=== PATIENT | female | born 1965 | race Caucasian/White ===

== ENCOUNTER → 2017-06-30 | Day surgery (SDC) | payer OTHER ==
[~2017-06-30] MED LIST: LIDOCAINE 1% PF 2 ML VIAL. ID; LIDOCAINE 2% 100 MG/5 ML SYRINGE.; ONDANSETRON PF 4 MG/2 ML VIAL. IV; PROCHLORPERAZINE 10 MG/2 ML VIAL. IV; PROPOFOL 40 ML IV; fentaNYL PF VIAL 100 MCG/2 ML VIAL IV
[2017-06-30] MEDS: IV RINGERS,LACTATED 1000ML 1,000 ML IV ×2 (06:36)
== END | disposition home or self-care (01) ==
LOC: ENDOS 06:15
DX: Z12.11 Encounter for screening for malignant neoplasm of colon (principal); D12.5 Benign neoplasm of sigmoid colon; K64.0 First degree hemorrhoids; Z88.5 Allergy status to narcotic agent; J45.909 Unspecified asthma, uncomplicated
CPT/HCPCS: 45380; 88305; J2704

== ENCOUNTER → 2018-07-22 | Outpatient (CLI) | payer OTHER ==
[2017-06-30 08:03] VITALS: BP 103/50
[~2018-07-22] MED LIST changes: +BACL10TA PO; +BUDE10.2 IH; +FLUT9.9S NS; +HYDR25TA PO; -LIDOCAINE 1% PF 2 ML VIAL. ID; -LIDOCAINE 2% 100 MG/5 ML SYRINGE.; +MELO7.5T29 PO; -ONDANSETRON PF 4 MG/2 ML VIAL. IV; +PARO20TA3 PO; +PHEN100C4 PO; -PROCHLORPERAZINE 10 MG/2 ML VIAL. IV; -PROPOFOL 40 ML IV; -fentaNYL PF VIAL 100 MCG/2 ML VIAL IV
--- NOTE | 2018-07-22 11:26 | RAD ---
Right wrist, 3 views, 07/22/2018: HISTORY: Arthritis No fracture or dislocation is identified. There is moderate degenerative change at the first CMC articulation. Right hand, 3 views, 07/22/2018: No fracture or dislocation is identified. No erosive bony changes are seen. The soft tissues are unremarkable. IMPRESSION: 1. 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 2. No acute hand or wrist abnormality is detected. Electronically signed by: Malik Zapata MD (07/22/2018 11:24 AM) [facility]
== END | disposition home or self-care (01) ==
LOC: RAD 10:17
PROVIDERS: ATTEND Physician Assistant Medical
DX: M18.11 Unilateral primary osteoarthritis of first carpometacarpal joint, right hand (principal); M19.041 Primary osteoarthritis, right hand
CPT/HCPCS: 73110; 73130

== ENCOUNTER → 2020-10-18 | Outpatient (CLI) | payer OTHER ==
[2017-06-30 08:03] VITALS: BP 103/50
--- NOTE | 2020-10-18 12:26 | RAD ---
EXAM: Left knee, 2 views. HISTORY: Pain. COMPARISON: None. FINDINGS: 2 views of the left knee are obtained. There is no fracture, dislocation or subluxation. Th ere is no joint effusion. IMPRESSION: No acute osseous finding. Electronically signed by: Nikki Nuñez MD (10/18/2020 12:24 PM) [id number]
== END ==
LOC: RAD 11:44
DX: M25.562 Pain in left knee (principal)
CPT/HCPCS: 73560